=== PATIENT | female | born 1965 | race Caucasian/White ===

== ENCOUNTER 2019-10-01 21:02 | Emergency (ER) | payer MEDICAID, SELFPAY ==
[~2019-10-01] VITALS: Ht 167.6 cm; Wt 47.7 kg
--- NOTE | 2019-10-01 21:30 | NUR ---
PT PROVIDED URINE CUP, UNABLE TO PROVIDE SAMPLE AT THIS TIME.
--- NOTE | 2019-10-01 21:33 | NUR ---
PT C/O RLQ PAIN FOR X1 DAY WITH BLOATING, REPORTS HX OF SAME, RESOLVED ON ITS OWN. PT REPORTS X1 EPISODE OF DIARRHEA TODAY, DENIES VOMITING OR NAUSEA. PT DENIES OTHER C/O AT THIS TIME. PT CONNECTED TO MONITORING, CALL LIGHT WITHIN REACH, ALL SAFETY MEASURES IN PLACE.
[2019-10-01 22:06] LABS: BASOPHILS # (AUTO) 0.05 x10^3/uL (0-0.1); BASOPHILS % (AUTO) 1 % (0-1); EOSINOPHILS # (AUTO) 0.15 x10^3/uL (0-0.4); EOSINOPHILS % (AUTO) 3 % (1-7); LYMPHOCYTES # (AUTO) 2.32 x10^3/uL (1-3.4); LYMPHOCYTES % (AUTO) 43 % (22-44); MD NO; MEAN CORPUSCULAR HEMOGLOBIN 31.5 pg (27.0-34.8); MEAN CORPUSCULAR VOLUME 92.8 fL (80-100); MEAN PLATELET VOLUME 7.8 fL (7.4-10.4); MONOCYTES # (AUTO) 0.47 x10^3/uL (0.2-0.8); MONOCYTES % (AUTO) 9 % (2-9); NEUTROPHILS # (AUTO) 2.47 x10^3/uL (1.8-6.8); NEUTROPHILS % (AUTO) 45 % (42-75); PLATELET COUNT 237 x10^3/uL (130-400); RED BLOOD COUNT 4.47 x10^6/uL (3.82-5.3); RED CELL DISTRIBUTION WIDTH 13.3 % (9.6-15.2)
[2019-10-01 22:19] LABS: ALANINE AMINOTRANSFERASE 28 U/L (12-78); ALBUMIN 3.9 g/dL (3.4-5.0); ANION GAP 6 mmol/L (5-15); CALCIUM 8.8 mg/dL (8.5-10.1); CHLORIDE 112 mmol/L (98-107); CREATININE 0.67 mg/dL (0.55-1.02)
[2019-10-01 22:22] LABS: ALKALINE PHOSPHATASE 70 U/L (45-117); BILIRUBIN,TOTAL 0.3 mg/dL (0.2-1.0); TOTAL PROTEIN 7.7 g/dL (6.4-8.2)
--- NOTE | 2019-10-01 22:41 | NUR ---
NEED IV FOR CT.
--- NOTE | 2019-10-01 22:45 | NUR ---
PT TO IMAGING AT THIS TIME.
[2019-10-01] MEDS ORDERED: OMNIPAQUE 350 MG/ML, 100ML BOTTLE ONE (22:53)
--- NOTE | 2019-10-01 23:13 | NUR ---
UA PROVIDED AT THIS TIME.
[2019-10-01 23:20] LABS: MICROSCOPIC NOT IND
[2019-10-01 23:22] LABS: CULTURE INDICATED? NO
[2019-10-02] MEDS ORDERED: ONDANSETRON ODT 4 MG PO ONE
[2019-10-02] MEDS ORDERED: ONDANSETRON ODT 4 MG ONE (00:30)
[2019-10-02 00:37] VITALS: BP 115/84
== END 2019-10-02 00:58 | disposition home or self-care (01) ==
LOC: ED 23:41
DX: R11.2 Nausea with vomiting, unspecified (principal); R10.31 Right lower quadrant pain
CPT/HCPCS: 36415; 74177; 80053; 81003; 83690; 85025; 99284; Q0162; Q9967